=== PATIENT | male | born 1990 | race Two or more races ===

== ENCOUNTER 2019-03-03 08:47 | Emergency (ER) | payer SELFPAY ==
[2019-03-03] MEDS ORDERED: DEXAMETHASONE SOD PHOS INJ 10 MG/1 ML VIAL IV ONE (09:59)
[2019-03-03] MEDS ORDERED: KETOROLAC TROMETHAMINE INJ/PF 30 MG/1 ML SDV IV ONE (09:59)
--- NOTE | 2019-03-03 10:03 | ER Document Report ---
ED Medical Screen (RME) - General Chief Complaint: Sore Throat Stated Complaint: THROAT SWELLING Time Seen by Provider: 03/03/19 09:57 Mode of Arrival: Ambulatory Information source: Patient Notes: 28 yo male presnts to ed for sore throat runny nose congestion, with difficulty swallowing since yesterday. tonsils red and enlarged. Strep test was negative will order CBC chemistry and monitors but. Patient was ordered Toradol and Decadron for his discomfort. Patient is alert oriented respirations regular and unlabored speaking in full sentences is able to answer questions. I have greeted and performed a rapid initial assessment of this patient. A comprehensive ED assessment and evaluation of the patient, analysis of test results and completion of medical decision making process will be conducted by an additional ED providers. - Related Data Allergies/Adverse Reactions: No Known Allergies Allergy (Verified 03/03/19 08:53) Past Medical History - Social History Cigarette use (# per day): No Chew tobacco use (# tins/day): No Frequency of alcohol use: Social Drug Abuse: None Renal/ Medical History: Denies: Hx Peritoneal Dialysis Physical Exam - Vital signs Vitals: Temp Pulse Resp BP Pulse Ox 98.1 F 66 16 136/86 H 97 03/03/19 08:53 03/03/19 08:53 03/03/19 08:53 03/03/19 08:53 03/03/19 08:53 Course - Vital Signs Vital signs: Temp Pulse Resp BP Pulse Ox 98.0 F 65 20 121/74 99 03/03/19 12:16 03/03/19 12:16 03/03/19 12:16 03/03/19 12:16 03/03/19 12:16 - Laboratory Result Diagrams: 03/03/19 10:32 Laboratory results interpreted by me: 03/03/19 10:32 WBC 3.6 L
[2019-03-03 10:50] LABS: ABSOLUTE EOSINOPHILS # (AUTO) 0.1 10^3/uL (0.0-0.6); ABSOLUTE LYMPHOCYTES (AUTO) 1.2 10^3/uL (0.5-4.7); ABSOLUTE MONOCYTES (AUTO) 0.3 10^3/uL (0.1-1.4); BASOPHILS % (AUTO) 0.4 % (0-2); EOSINOPHILS % (AUTO) 3.1 % (0-6); HEMOGLOBIN 15.6 g/dL (13.5-17.0); LYMPHOCYTES % (AUTO) 32.3 % (13-45); MEAN CORPUSCULAR HEMOGLOBIN 30.7 pg (27.0-33.4); MEAN CORPUSCULAR HGB CONC 34.7 g/dL (32.0-36.0); MEAN CORPUSCULAR VOLUME 89 fl (80-97); PLATELET COUNT 169 10^3/uL (150-450); RED BLOOD COUNT 5.08 10^6/uL (4.35-5.55); SEGMENTED NEUTROPHILS % (AUTO) 55.2 % (42-78); TOTAL CELLS COUNTED % (AUTO) 100 %; WHITE BLOOD COUNT 3.6 10^3/uL (4.0-10.5)
--- NOTE | 2019-03-03 12:03 | ER Document Report ---
ED General - General Chief Complaint: Sore Throat Stated Complaint: THROAT SWELLING Time Seen by Provider: 03/03/19 09:57 Primary Care Provider: [facility] [Provider Group] - Follow up in 3-5 days Mode of Arrival: Ambulatory - [facility] Notes: 28-year-old male to the emergency department with complaints of sore throat that began 2 days ago. States that it hurts every time he swallows. He denies any ear pain, nasal discharge, cough, fevers, chills. He denies any sick contacts. He has not tried anything [id number]. Patient is Telugu-speaking only. His friend states that he will translate for him. Patient denies any drooling or swelling in the mouth. He denies any shortness of breath. - Related Data Allergies/Adverse Reactions: No Known Allergies Allergy (Verified 03/03/19 08:53) Past Medical History - General Information source: Patient - Social History Smoking Status: Never Smoker Cigarette use (# per day): No Chew tobacco use (# tins/day): No Frequency of alcohol use: Social Drug Abuse: None Family History: Reviewed & Not Pertinent Patient has suicidal ideation: No Patient has homicidal ideation: No Renal/ Medical History: Denies: Hx Peritoneal Dialysis Review of Systems - Review of Systems Constitutional: denies: Chills, Fever EENT: Throat pain, Difficulty swallowing. denies: Ear pain, Nose pain, Nose congestion, Nose discharge Cardiovascular: denies: Chest pain, Palpitations, Syncope, Dizziness, Lightheaded Respiratory: denies: Cough, Short of breath Gastrointestinal: denies: Abdominal pain, Diarrhea, Nausea, Vomiting Genitourinary: No symptoms reported Musculoskeletal: No symptoms reported Skin: No symptoms reported Neurological/Psychological: No symptoms reported -: Yes All other systems reviewed and negative Physical Exam - Vital signs Vitals: Temp Pulse Resp BP Pulse Ox 98.1 F 66 16 136/86 H 97 03/03/19 08:53 03/03/19 08:53 03/03/19 08:53 03/03/19 08:53 03/03/19 08:53 Interpretation: Normal - General General appearance: Appears well, Alert - HEENT Head: Normocephalic, Atraumatic Eyes: Normal Pupils: PERRL Ears: Normal External canal: Normal Tympanic membrane: Normal Sinus: Normal Nasal: Normal Mouth/Lips: Normal Mucous membranes: Normal Pharynx: Erythema - There is erythema to the posterior oropharynx. There is 1+ edema to bilateral tonsils. There is no exudate. There is no evidence for ludwigs angina. Patient's airway is grossly patent.. No: Exudate, Peritonsillar abscess, Post nasal drainage, Retropharyngeal abscess, Uvular edema, Potential airway comprom. Neck: Other - There is tenderness and mild adenopathy of the anterior nodes. - Respiratory Respiratory status: No respiratory distress Chest status: Nontender Breath sounds: Normal Chest palpation: Normal - Cardiovascular Rhythm: Regular Heart sounds: Normal auscultation Murmur: No - Abdominal Inspection: Normal Distension: No distension Bowel sounds: Normal Tenderness: Nontender Organomegaly: No organomegaly - Neurological Neuro grossly intact: Yes Cognition: Normal Orientation: AAOx4 [place] Coma Scale Eye Opening: Spontaneous [place] Coma Scale Verbal: Oriented [place] Coma Scale Motor: Obeys Commands [place] Coma Scale Total: 15 Speech: Normal Cranial nerves: Normal Cerebellar coordination: Normal Motor strength normal: LUE, RUE, LLE, RLE Additional motor exam normals: Equal segment block layer. No: Plantar flexion Sensory: Normal - Psychological Associated symptoms: Normal affect, Normal mood - Skin Skin Temperature: Warm Skin Moisture: Dry Skin Color: Normal Course - Re-evaluation Re-evalutation: Noted labs and negative mono and strep. Patient still having significant pain after Decadron and Toradol. Will dose with Tylenol and viscous lidocaine. Rounded on patient is feeling better. We will send home with Medrol Dosepak, Chloraseptic Cold [place], and will cover with azithromycin. Patient agrees with the plan. Urged to return if any worsening sore throat, inability to hold on fluids, drooling, shortness of breath or any other complaints. Patient voices understanding. - Vital Signs Vital signs: Temp Pulse Resp BP Pulse Ox 98.2 F 77 15 131/72 H 97 03/03/19 14:14 03/03/19 14:14 03/03/19 14:14 03/03/19 14:14 03/03/19 14:14 - Laboratory Result Diagrams: 03/03/19 10:32 Laboratory results interpreted by me: 03/03/19 10:32 WBC 3.6 L Discharge - Discharge Clinical Impression: Pharyngitis Qualifiers: Pharyngitis/tonsillitis etiology: unspecified etiology Qualified Code(s): J02.9 - Acute pharyngitis, unspecified Condition: Stable Disposition: HOME, SELF-CARE Instructions: Sore Throat ([facility]) Additional Instructions: Complete all antibiotics. Take medicine as prescribed. Push fluids. Rest. Follow-up with the primary care clinic listed below. Return if any worsening symptoms. Prescriptions: Phenol/Sodium Phenolate [Chloraseptic Sore Throat Cold [place] 177 ml] 2 sprays MM Q2HP PRN #1 bottle PRN Reason: Azithromycin 500 mg PO DAILY #5 tablet Methylprednisolone [Medrol Dosepack (4 mg/Tab) 21 Tab/Dosepak] 4 mg PO ASDIR PRN #21 [email or web address] PRN Reason: Referrals: [facility] [Provider Group] - Follow up in 3-5 days
[2019-03-03] MEDS ORDERED: LIDOCAINE 2% VISCOUS SOLN 20 ML UDCUP PO ONE (12:13)
[2019-03-03] MEDS ORDERED: ACETAMINOPHEN 325 MG TABLET PO ONE (12:14)
[2019-03-03 14:22] VITALS: BP 131/72
== END 2019-03-03 14:23 | disposition home or self-care (01) ==
LOC: ER 08:47
DX: J02.9 Acute pharyngitis, unspecified (principal)
CPT/HCPCS: 99283; 96374; 96375; 36415; 87070; 87880; 85025; 86308; J3490; J1885; J1100